=== PATIENT | male | born 1985 | race Caucasian/White ===

== ENCOUNTER 2017-11-12 08:41 | Day surgery (SDC) | payer OTHER ==
[~2017-11-12 08:41] MED LIST: ALBIPROI; ALBU90OI INH; AMLO10 PO; CETI10; CHLO500T PO; CHOL10002; FLUSAL2505; LISI5 PO; METO25; Prednisone20 MG PO; Ventolin Soln3 ML INH; Zithromax250 MG PO
[2017-11-12] MEDS ORDERED: DULO30 PO (09:07)
[2017-11-12] MEDS ORDERED: ATOR10 PO (09:09)
[2017-11-12] MEDS ORDERED: CLAR500 PO (09:10)
== END 2017-11-12 12:49 | disposition home or self-care (01) ==
LOC: ORSCSDS 08:41
PROVIDERS: Otolaryngology
PROC: 09BV4ZZ Excision of Left Ethmoid Sinus, Percutaneous Endoscopic Approach (ICD-10-PCS; principal; 2017-11-12 10:00)
PROC: 09DR4ZZ Extraction of Left Maxillary Sinus, Percutaneous Endoscopic Approach (ICD-10-PCS; principal; 2017-11-12 10:00)
PROC: 09SM0ZZ Reposition Nasal Septum, Open Approach (ICD-10-PCS; principal; 2017-11-12 10:00)
DX: J34.2 Deviated nasal septum (principal); J32.8 Other chronic sinusitis; I10 Essential (primary) hypertension; I25.10 Atherosclerotic heart disease of native coronary artery without angina pectoris; J45.909 Unspecified asthma, uncomplicated; G47.33 Obstructive sleep apnea (adult) (pediatric); Z79.899 Other long term (current) drug therapy
CPT/HCPCS: J0330; J1100; J2250; J2405; J2710; J3010; J3301; J7120

== ENCOUNTER 2018-01-23 12:05 | Day surgery (SDC) | payer OTHER ==
[~2018-01-23] VITALS: Ht 180.3 cm; Wt 168.3 kg
[~2018-01-23 12:05] MED LIST changes: +ATOR10 PO; +ATOR20 PO; +CHOL10002 PO; +CLAR500 PO; +DULO30 PO; -METO25; +METO25 PO; +ONDA8 PO
== END 2018-01-23 14:10 | disposition home or self-care (01) ==
LOC: ORSCMMR 12:05 → ORD 13:30 → ORSCMMR 14:10
PROVIDERS: Internal Medicine Gastroenterology
PROC: 0DB58ZX Excision of Esophagus, Via Natural or Artificial Opening Endoscopic, Diagnostic (ICD-10-PCS; principal; 2018-01-23 13:30)
PROC: 0DB68ZX Excision of Stomach, Via Natural or Artificial Opening Endoscopic, Diagnostic (ICD-10-PCS; principal; 2018-01-23 13:30)
DX: Z01.818 Encounter for other preprocedural examination (principal); E78.00 Pure hypercholesterolemia, unspecified; I10 Essential (primary) hypertension; J45.909 Unspecified asthma, uncomplicated; K29.70 Gastritis, unspecified, without bleeding; K21.9 Gastro-esophageal reflux disease without esophagitis; Z68.43 Body mass index [BMI] 50.0-59.9, adult; E66.01 Morbid (severe) obesity due to excess calories; Z79.899 Other long term (current) drug therapy
CPT/HCPCS: 88305; 88342; J7120